=== PATIENT | female | born 1980 | race Caucasian/White ===

== ENCOUNTER 2016-10-22 04:18 | Emergency (ER) | payer OTHER ==
[~2016-10-22 04:18] MED LIST: ALPRAZOLAM PO; BACTROBAN22 GM TOP; DESYREL50 MG PO; IBUPROFEN800 MG PO; KEFLEX500 MG PO; LITHIUM PO; LORTAB 5/500 TA1 TA1 PO; NO MEDICATIONS; PRENATAL1 TA1 PO; PRILOSEC20 MG PO
== END 2016-10-22 05:50 | disposition home or self-care (01) ==
LOC: CED 04:18 → CFTX 05:48
DX: T54.91XA Toxic effect of unspecified corrosive substance, accidental (unintentional), initial encounter (principal); J68.0 Bronchitis and pneumonitis due to chemicals, gases, fumes and vapors; Y92.9 Unspecified place or not applicable; F17.200 Nicotine dependence, unspecified, uncomplicated; Z88.1 Allergy status to other antibiotic agents; Z88.5 Allergy status to narcotic agent
CPT/HCPCS: 94640; 99282; 99283

== ENCOUNTER 2017-01-08 02:49 | Emergency (ER) | payer OTHER ==
[~2017-01-08] VITALS: Ht 160 cm; Wt 72.6 kg
--- NOTE | ~2017-01-08 | CT52 ---
[facility] A Service of [facility] RADIOLOGY TEXT RESULTS PATIENT: JANEL ORELLANA LOCATION: [facility] : [birth year] UNIT #: [id number] AGE: [address]: Grey hCristian MD SEX: F ORDER DR: [id number] [facility] [address] [place], [place] [address] [id number] MR#: [id number] #: [id number] NAME: JANEL ORELLANA : 1980 SEX: F STUDY DATE/TIME: 01/08/2017 3:38 UNIT: [facility] ROOM: STUDY DESCRIPTION: CT Cervical Spine Wo Cont Attending Physician: Grey Christian M.D. Ordering Physician: Grey Christian M.D. Primary Care Physician: No Primary Care Physician MEDICAL IMAGING REPORT This report is preliminary unless electronic signature is present EXAM CT cervical spine, 01/08/2017. HISTORY 36-year-old female in the ED after a head injury. Fell earlier today, striking the back of her head. Posterior scalp wound. Headaches and neck pain. TECHNIQUE Thin-section axial CT images were obtained from the skull base through the lower margin of T2. Sagittal and coronal images were reconstructed. This CT exam was performed with one or more of the following radiation dose reduction techniques: automatic exposure control, adjustment of mA and/or kV according to patient size, and iterative reconstruction. FINDINGS The examination is negative. No evidence of acute or chronic fracture or additional osseous lesion. Cervical disc spaces and cervical vertebral alignment are within normal limits. Reversal of cervical lordosis is noted, but this is most likely positional. IMPRESSION Negative CT examination of the cervical spine. Dictated by... Joe Bedolla M.D. THIS IS AN ELECTRONICALLY VERIFIED REPORT Joe Bedolla M.D. at 01/08/2017 9:53 PM [id number] [facility] A Service of [facility] RADIOLOGY TEXT RESULTS PATIENT: JANEL ORELLANA LOCATION: [facility] : [birth year] UNIT #: [id number] AGE: [address]: Grey Christian MD SEX: F ORDER DR: TD: 01/08/2017 09:56 JOB #: [id number] MEDICAL IMAGING REPORT Page 1 of 1 COPY
--- NOTE | ~2017-01-08 | CT71 ---
[facility] A Service of [facility] RADIOLOGY TEXT RESULTS PATIENT: JANEL ORELLANA LOCATION: [facility] : [birth year] UNIT #: [id number] AGE: [address]: Grey Christian MD SEX: F ORDER DR: [id number] [facility] [address] [place], [place] [address] [id number] E MR#: [id number] #: [id number] NAME: JANEL ORELLANA : 1980 SEX: F STUDY DATE/TIME: 01/08/2017 3:30 UNIT: [facility] ROOM: STUDY DESCRIPTION: CT Head Wo Contrast Attending Physician: Grey Christian M.D. Ordering Physician: Grey Christian M.D. Primary Care Physician: No Primary Care Physician MEDICAL IMAGING REPORT This report is preliminary unless electronic signature is present EXAM CT head, noncontrast, 01/08/2017. HISTORY 36-year-old female in the ED after head injury. She fell earlier today, striking the back of her head. Soft tissue wound, dizziness and headaches. Neck pain. TECHNIQUE CT examination of the head without IV contrast. This CT exam was performed with one or more of the following radiation dose reduction techniques: automatic exposure control, adjustment of mA and/or kV according to patient size, and iterative reconstruction. FINDINGS Left upper posterior parietal scalp laceration. No visible skull fracture. Intracranially, the examination is negative. No evidence of intracranial hemorrhage, cerebral edema, mass effect or additional abnormality. IMPRESSION 1. No acute intracranial abnormality. 2. Left upper posterior parietal scalp laceration. No visible skull fracture. Dictated by... Joe Bedolla M.D. THIS IS AN ELECTRONICALLY VERIFIED REPORT Joe Bedolla M.D. at 01/08/2017 9:53 PM [facility] A Service [facility] RADIOLOGY TEXT RESULTS PATIENT: JANEL ORELLANA LOCATION: [facility] : [birth year] UNIT #: [id number] AGE: [address]: Grey Christian MD SEX: F ORDER DR: VALE/sonal TD: 01/08/2017 09:55 JOB #: [id number] MEDICAL IMAGING REPORT Page 1 of 1 COPY
== END 2017-01-08 04:46 | disposition home or self-care (01) ==
LOC: CED 02:49
DX: S01.01XA Laceration without foreign body of scalp, initial encounter (principal); Z23 Encounter for immunization; F11.10 Opioid abuse, uncomplicated; F41.9 Anxiety disorder, unspecified; F17.200 Nicotine dependence, unspecified, uncomplicated; W01.0XXA Fall on same level from slipping, tripping and stumbling without subsequent striking against object, initial encounter; Y92.009 Unspecified place in unspecified non-institutional (private) residence as the place of occurrence of the external cause
CPT/HCPCS: 12001; 12011; 70450; 72125; 90471; 90715; 99284

== ENCOUNTER 2017-01-21 13:40 | Emergency (ER) | payer OTHER ==
[~2017-01-21] VITALS: Ht 162.6 cm; Wt 63.5 kg
== END 2017-01-21 14:15 | disposition home or self-care (01) ==
LOC: CED 13:40 → CFTX 13:40
DX: S01.01XD Laceration without foreign body of scalp, subsequent encounter (principal)
CPT/HCPCS: 99281